=== PATIENT | male | born 1985 | race Caucasian/White ===

== ENCOUNTER → 2021-03-06 | Outpatient (CLI) | payer OTHER ==
--- NOTE | 2021-03-09 14:37 | RAD ---
MR#: [id number] Date of Study: 03/06/2021 Ordering Physician: DANETTE BLISS, Referring Physician: BRANDI BARLOW Tech: VICKIE Stahl APPROVED REPORT Test Type: Exercise Stress Nurse/Tech: Codi Elder RN Test Indications: Chest pain Cardiac History: No known cardiac Medications: See Electronic Medical Record Medical History: See Electronic Medical Record Resting ECG: SB Resting Heart Rate: 55 bpm Resting Blood Pressure: 113/64mmHg Pretest Chest Pain: No chest pain Nurse/Tech Notes S1,S2 and lungs clear to auscultation. Patient states he has pressure in left and mid chest area for the last 3-4 months. Consent: The procedure was explained to the patient in lay terms. Informed consent was witnessed. Jason eout was entered into [employer]. History and Stress Test performed by VICKIE Stahl Stress Symptoms Dyspnea,slight pressure in chest POST EXERCISE Reason for Termination: Reached target heart rate, Fatigue Target HR: Yes Max HR: 229 bpm 146% of Maximum Predicted HR: 156 bpm Exercise duration: 11:10 min:sec, 4 Stage Exercise capacity: 13.4METs Max Blood Pressure: 113/64mmHg Blood Pressure response to exercise: Normal blood pressure response during stress. Heart Rate response to exercise: WNL Chest Pain: Yes. see note above Arrhythmia: No. ST Change: No. INTERPRETATION Stress EKG Conclusion: No evidence of stress induced EKG changes. Imaging Protocol IMAGE PROTOCOL: Rest Tc-99m/stress Tc-99m 1 day Rest: Stress: Viability: Radiopharm.Tc99m HigioqtqnHr15j Sestamibi Lgue76rGb 32mCi Duration 15min. 13min. Img Date 03/06/2021 03/06/2021 Inj-Img Sher09lbu. 60min. Rest Admin Site:IV - Right AntecubitalAdministrator:VICKIE Stahl Stress Admin Site: IV - Right AntecubitalAdministrator: JOSEPHINE Silverman, ARRT (R)(N) STRESS DATA End Diast. Vol.117.0mlLVEDV index BSA53.0ml End Syst. Vol.35.0mlLVESV index BSA16.0ml Myocardial Pzox428.0gEject. Pmbfddrd28.0% Stress Scores Regional WT1.00Summed WT6.00 Regional WM0.00Summed WM0.00 The rest and stress images show normal perfusion, normal contraction and thickening. LV Perf. Quant 17 Seg. SSS1.00 17 Seg. SRS3.00 17 Seg. SDS0.00 Stress Defect Extent (% LAD)0.00Rest Defect Extent (% LAD)0.00Rev. Defect Extent (% LAD)0.00 Stress Defect Extent (% LCX) 16.30Rest Defect Extent (% LCX)17.50Rev. Defect Extent (% LCX)0.00 Stress Defect Extent (% RCA)0.00Rest Defect Extent (% RCA)0.00Rev. Defect Extent (% RCA)0.00 Stress Defect Extent (% YAJAIRA)2.80Rest Defect Extent (% YAJAIRA)3.50Rev. Defect Extent (% YAJAIRA)0.00 Other Information Quality:Fair Risk Assessment: Low Risk Conclusion 1. No evidence of EKG changes with stress testing. 2. Normal perfusion at stress/rest. 3. Low risk study. 4. EF > 60%. Signed by : Joaquin Baker, Electronically Approved : 03/09/2021 14:37:14
== END ==
LOC: NM 08:05
PROVIDERS: ATTEND Internal Medicine Cardiovascular Disease
DX: R07.9 Chest pain, unspecified (principal)
CPT/HCPCS: 78452; 93017; A9500